=== PATIENT | male | born 1975 | race Caucasian/White ===

== ENCOUNTER 2025-08-25 02:14 | Emergency (ER) | payer MEDICAID, OTHER ==
[~2025-08-25] VITALS: Ht 175.3 cm; Wt 64.0 kg
[2025-08-25] MEDS: FOLIC ACID 1 MG in D5W 5% 50 ML INJ ONE (03:00)
[2025-08-25] MEDS: THIAMINE 100mg/ml INJ (200mg/2ml VIAL) IV ONE (03:00)
[2025-08-25] MEDS: PANTOPRAZOLE 40 MG/10 ML VIAL INJ IV ONE (03:00)
[2025-08-25] MEDS: ONDANSETRON HCL 4 MG/2 ML VIAL IV ONE (03:00)
--- NOTE | 2025-08-25 03:06 | ED.PDOC ---
GI ASSESSMENT HPI Comments 49 year old male with no past medical history who does not follow up with a physician was BIBA for the evaluation of rectal bleeding and rectal pain. Patient reports that he has been drinking alcohol for the past 3 days, not eating or drinking anything else, he experienced a break-up 3 days before. He has consumed almost 20 bottle of hard liquor with 50% alcohol in the past 3 days. Patient says that he experienced rectal bleeding which is fresh red in color started this morning, is associated with bowel movements and sometimes without bowel movements, he does report feeling hemorrhoids and that they are tender. Patient has also experienced 3 episodes of vomiting, nonbloody earlier today. But denies any abdominal pain or constipation. Denies fever or chills, chest pain or shortness of breaths her urinary symptoms at this time. Denies homicidal or suicidal ideations. Past medical history: Denies Social history: Smokes Lithuanian spread cigarette, drinks every day for at least past 20 years, denies drug use Patient seen and examined in ER bed 1. Abdomen is nontender, soft, normoactive. Rectal exam showed external hemorrhoids, which are prolapsed, skin colored but not thrombosed. Complete Rectal exam could not be completed as the patient had severe tenderness at the hemorrhoidal site. No active bleeding seen. Chief Complaint: GI Bleed Time Seen by MD: 02:33 Reviewed Notes: Nurses Notes, Digital Specialist Notes Allergies: Coded Allergies: NO KNOWN ALLERGIES (Unverified , 08/25/25) Information Source: Patient Mode of Arrival: EMS Constitutional: denies: chills, diaphoresis, fatigue, fever, malaise, sweats, weakness, others EENTM: denies: blurred vision, double vision, ear bleeding, ear discharge, ear drainage, ear pain, ear ringing, eye pain, eye redness, hearing loss, mouth pain, mouth swelling, nasal discharge, nose bleeding, nose congestion, nose pain, photophobia, tearing, throat pain, throat swelling, voice changes, others Respiratory: denies: cough, hemoptysis, orthopnea, SOB at rest, shortness of breath, SOB with excertion, stridor, wheezing, others Cardiovascular: denies: chest pain, dizzy spells, diaphoresis, Dyspnea on exertion, edema, irregular heart beat, left arm pain, lightheadedness, palpitations, PND, syncope, others Gastrointestinal: reports: nausea, poor appetite, rectal bleeding, vomiting Genitourinary: denies: burning, dysuria, flank pain, frequency, hematuria, incontinence, penile discharge, penile sore, pain, testicle pain, testicle swelling, urgency, others Neurological: denies: dizziness, fainting, headache, left sided numbness, left sided weakness, numbness, paresthesia, pre-existing deficit, right sided numbness, right sided weakness, seizure, speech problems, tingling, tremors, weakness, others Musculoskeletal: denies: back pain, gout, joint pain, joint swelling, muscle pain, muscle stiffness, neck pain, others Integumetry: denies: bruises, change in color, change in hair/nails, dryness, laceration, lesions, lumps, rash, wounds, others Allergic/Immunocompromised: denies: Difficulty Healing, Frequent Infections, Hives, Itching, others Hematologic/Lymphatic: denies: anemia, blood clots, easy bleeding, easy bruising, swollen glands, others Endocrine: denies: excessive hunger, excessive sweating, excessive thirst, excessive urination, flushing, intolerance to cold, intolerance to heat, unexplained weight gain, unexplained weight loss, others Psychiatric: denies: anxiety, bipolar disorder, depression, hopeless, panic disorder, schizophrenia, sleepless, suicidal, others Physical Exam General Appearance: Mild Distress HEENT: Other (Dry mucous membranes) Neck: NOT DONE Respiratory: No Accessory Muscle Use, No Respiratory Distress, Normal Breath Sounds Cardiovascular: No Edema, No Murmur, Regular Rate/Rhythm Breast Exam: Deferred Gastrointestinal: No Organomegaly, Non Tender, No Pulsatile Mass, Normal Bowel Sounds, Soft Genitalia: Other (Abdomen is nontender, soft, normoactive. Rectal exam showed external hemorrhoids, which are prolapsed, skin colored but not thrombosed. Complete Rectal exam could not be completed as the patient had severe tenderness at the hemorrhoidal site. No active bleeding seen.) Pelvic: Deferred Rectal: Hemorrhoids Extremities: Non-tender, No pedal edema Neurologic: NOT DONE Cerebellar Function: NOT DONE Reflexes: NOT DONE Skin: Dry Lymphatic: NOT DONE Was a procedure done? Was a procedure done?: No GI differential Dx Differential Diagnosis: Gastritis/PUD, Dehydration, Hypovolemia, Malnutrition Other Differential Diagnosis Hemorrhoids, constipation, alcohol intoxication X-Ray, Labs, Meds, VS Vital Signs Date Time Temp Pulse Resp B/P (MAP) Pulse Ox O2 Delivery O2 Flow Rate FiO2 08/25/25 02:20 98.6 110 18 140/90 98 98.6 Lab Test 08/25/25 05:08 08/25/25 03:07 Range/Units Lactic Acid Level 3.5 *H 3.5 *H 0.4-2.0 mmol/L White Blood Count 8.0 4.4-10.8 10^3/uL Red Blood Count 5.25 4.5-5.90 10^6/uL Hemoglobin 17.3 13.5-17.5 g/dL Hematocrit 49.1 41.0-53.0 % Mean Corpuscular Volume 93.6 80.0-100.0 fL Mean Corpuscular Hemoglobin 33.0 H 28.0-32.0 pg Mean Corpuscular Hemoglobin Concent 35.3 32.0-36.0 g/dL Red Cell Distribution Width 13.8 11.8-14.3 % Platelet Count 359 140-450 10^3/uL Mean Platelet Volume 6.8 L 6.9-10.8 fL Neutrophils (%) (Auto) 64.0 37.0-80.0 % Lymphocytes (%) (Auto) 26.6 10.0-50.0 % Monocytes (%) (Auto) 6.7 0.0-12.0 % Eosinophils (%) (Auto) 1.7 0.0-7.0 % Basophils (%) (Auto) 1.0 0.0-2.0 % Neutrophils # (Auto) 5.1 1.6-8.6 10 ^3/uL Lymphocytes # (Auto) 2.1 0.4-5.4 10 ^3/uL Monocytes # (Auto) 0.5 0-1.3 10 ^3/uL Eosinophils # (Auto) 0.1 0-0.8 10 ^3/uL Basophils # (Auto) 0.1 0-0.2 10 ^3/uL Nucleated Red Blood Cells 0.2 % Sodium Level 145 136-145 mmol/L Potassium Level 3.2 L 3.5-5.1 mmol/L Chloride Level 103 98-107 mmol/L Carbon Dioxide Level 28 20-31 mmol/L Anion Gap 14 5-15 Blood Urea Nitrogen 5 L 9-23 mg/dL Creatinine 0.78 0.700-1.30 mg/dL Glomerular Filtration Rate Calc 110 >90 mL/min BUN/Creatinine Ratio 6.4 L 10.0-20.0 Serum Glucose 99 74-106 mg/dL Calcium Level 9.1 8.7-10.4 mg/dL Phosphorus Level 2.9 2.4-5.1 mg/dL Magnesium Level 1.9 1.6-2.6 mg/dL Total Bilirubin 1.3 H 0.2-1.0 mg/dL Aspartate Amino Transferase (AST) 34 13-40 U/L Alanine Aminotransferase (ALT) 27 7-40 U/L Alkaline Phosphatase 94 46-116 U/L Total Protein 7.3 5.7-8.2 g/dL Albumin 4.6 3.2-4.8 g/dL Plasma/Serum Blood Alcohol 279.5 H <10 mg/dL Time of 1ST Reevaluation: 04:00 Reevaluation 1ST: Improved (Nausea and vomiting has improved) Consultation: PCP Patient Education/Counseling: Diagnosis, Treatment Family Education/Counseling: Diagnosis, Treatment SEPSIS Sepsis Screen Date sepsis recognized/suspect: Aug 25, 2025 Time Sepsis recognized/suspect: 234 Recent Procedure: No On Antibiotic Therapy: No Respiratory Rate >20: No Heart Rate >90: Yes Temp<36 C (96.8 F) or >38.3 C: No SBP <90 or MAP <65 mmHG: No New Acute Mental Status Change: No Is the patient on CPAP, BIPAP,: No Physician Orders Drug Screen (08/25/25 02:58) Urinalysis (08/25/25 02:58) Potassium Chl 20meq/100ml (08/25/25 04:30) Piperacillin-Tazob 3.375gm (Zosyn 3.375g (08/25/25 06:00) Vital Signs Date Time Temp Pulse Resp B/P (MAP) Pulse Ox O2 Delivery O2 Flow Rate FiO2 08/25/25 02:20 98.6 110 18 140/90 98 98.6 Laboratory Tests Test 08/25/25 03:07 08/25/25 05:08 Lactic Acid Level 3.5 mmol/L (0.4-2.0) *H 3.5 mmol/L (0.4-2.0) *H White Blood Count 8.0 10^3/uL (4.4-10.8) Departure 1 Departure Time of Disposition: 05:59 Impression: Primary Impression: Lower GI bleed Additional Impressions: Hypovolemia Elevated lactic acid level Disposition: ADMITTED INPATIENT Admit to: Med Surg Condition: Guarded Comments 49-year-old male with some rectal bleeding. He was a bit tachycardic. Patient was given IV fluids. Lactic acid noted to be elevated. I suspect hypovolemia. Patient was given IV Zosyn. Patient will need to be admitted for supportive care and further workup. Critical Care Note Critical Care Time?: No Stability Stability form required: No CLEMENT POLO Aug 25, 2025 03:06 CLAYTON VILLANUEVA MD Aug 25, 2025 06:01
[2025-08-25 03:34] LABS: Hematocrit 49.1 % (41.0-53.0); Hemoglobin 17.3 g/dL (13.5-17.5); Mean Corpuscular Hemoglobin 33.0 pg (28.0-32.0); Mean Corpuscular Volume 93.6 fL (80.0-100.0); Nucleated Red Blood Cells % 0.2 %
[2025-08-25 03:46] LABS: Alanine Aminotransferase 27 U/L (7-40); Alkaline Phosphatase 94 U/L (46-116); Anion Gap 14 (5-15); BUN/Creatinine Ratio 6.4 (10.0-20.0); Calcium 9.1 mg/dL (8.7-10.4); Carbon Dioxide 28 mmol/L (20-31); Chloride 103 mmol/L (98-107); Glucose 99 mg/dL (74-106); Magnesium 1.9 mg/dL (1.6-2.6); Sodium 145 mmol/L (136-145); Total Protein 7.3 g/dL (5.7-8.2)
[2025-08-25 03:47] LABS: Albumin 4.6 g/dL (3.2-4.8)
[2025-08-25 03:53] LABS: Bilirubin, Total 1.3 mg/dL (0.2-1.0); Blood Urea Nitrogen 5 mg/dL (9-23); Lactic Acid w/Reflex 3.5 mmol/L (0.4-2.0); Potassium 3.2 mmol/L (3.5-5.1)
[2025-08-25] MEDS: SODIUM CHLORIDE 0.9% 1,000 ML IV ONE ×2 (06:40→09:26)
[2025-08-25] MEDS: HYDROCORTISONE ACET 25 MG RECTAL SUPP PR ONE (09:07)
[2025-08-25] MEDS: POTASSIUM CHL 20MEQ/100ML 100 ML IV SCH (09:26)
[2025-08-25] MEDS: PIPERACILLIN-TAZOB 3.375GM 100 ML IV ONE (09:33)
[2025-08-25 10:06] LABS: INR 1.11 (0.9-1.15); Partial Thromboplastin Time 27.2 SEC (24.5-34.5); Prothrombin Time 11.6 sec (9.3-11.8)
[2025-08-25 13:28] LABS: Hematocrit 43.8 % (41.0-53.0); Hemoglobin 15.3 g/dL (13.5-17.5)
[2025-08-25 13:55] LABS: Lactic Acid w/Reflex 2.8 mmol/L (0.4-2.0)
[2025-08-25 14:58] VITALS: BP 168/67; PULSE 90; RESP 16; TEMP 99.4; O2SAT 96
== END 2025-08-25 15:10 | disposition short-term general hospital (02) ==
LOC: ER 02:14 → EDBD 02:14 → ER 15:10
DX: K92.2 Gastrointestinal hemorrhage, unspecified (principal); E86.1 Hypovolemia; R74.02 Elevation of levels of lactic acid dehydrogenase [LDH]; Z79.899 Other long term (current) drug therapy
CPT/HCPCS: 36415; 80053; 80320; 83605; 83735; 84100; 85014; 85018; 85025; 85610; 85730; 87040; 96361; 96365; 99285; J2543; J7030; J7060